=== PATIENT | male | born 1985 | race Caucasian/White ===

== ENCOUNTER 2022-10-31 14:22 | Inpatient (IN) ==
[2022-10-31] MEDS ORDERED: Lactulose 30 ml UDC PO PRN (14:30)
[2022-10-31] MEDS ORDERED: Ondansetron ODT 4 mg TAB 4 MG TAB PO PRN (14:30)
[2022-10-31] MEDS ORDERED: Magnesium Hydroxide LIQ 30 ML UDC PO PRN (14:30)
[2022-10-31] MEDS ORDERED: Ondansetron 4 mg VIAL 2 MG/ML 2 ml VIAL IV PRN (14:30)
[2022-10-31] MEDS ORDERED: Lactated Ringers 1000 ml BAG 1,000 ML IV SCH (15:00)
[2022-10-31] MEDS: Morphine 2 MG/ML SYRINGE IV PRN (15:19)
[2022-10-31 15:20] LABS: ABS Eosinophils 0.2 10^3/uL (0.0-0.5); ABS Lymphocytes 1.8 10^3/uL (1.0-4.8); ABS Monocytes 0.9 10^3/uL (0.0-1.1); ABS Neutrophils 7.9 10^3/uL (1.5-7.6); Eosinophil % 1.4 %; Hematocrit 39.1 % (38-53); Hemoglobin 13.2 g/dL (13.2-16.3); Lymphocyte % 16.8 %; Mean Corpuscular Hemoglobin 28.5 pg (27-33); Mean Corpuscular Hgb Conc 33.9 g/dL (31-36); Mean Corpuscular Volume 84.2 fL (80-97); Platelet Count 279 10^3/uL (150-450); Red Blood Count 4.64 10^6/uL (4.06-5.63); Red Cell Distribution Width 14.5 % (12-17); White Blood Count 10.9 10^3/uL (3.6-10.2)
[2022-10-31 15:25] LABS: INR 1.16 (0.83-1.13)
[2022-10-31 15:37] LABS: C Reactive Protein 104.4 mg/L (<8.01); Calcium 9.3 mg/dL (8.6-10.3); Creatinine, Serum 1.1 mg/dL (0.67-1.17); Potassium 3.8 mmol/L (3.5-5.0); eGFR CKD-EPI 89.2 (>60)
[2022-10-31] MEDS ORDERED: Vancomycin per Pharmacy 1 EA NOTE FOLLOW UP SCH (16:00)
[2022-10-31 16:11] LABS: Body Fluid Appearance Cloudy; Body Fluid Color Yellow; Body Fluid Source Synovial Fluid
[2022-10-31 16:36] LABS: Erythrocyte Sed Rate 10 mm/Hr (0-14)
[2022-10-31] MEDS: Cefepime 2 GM in Dextrose 2 GM/50 ML BAG IV SCH (17:09)
[2022-10-31] MEDS: Vancomycin 1,750 MG in NS 0.9% 500 ml BAG 500 ML IVPB SCH (17:59)
[2022-10-31 18:20] LABS: Body Fluid Total Cells Counted 43
[2022-10-31 18:21] LABS: Body Fluid WBC 232 /mcL
[2022-10-31] MEDS: Magnesium Hydroxide LIQ 30 ML UDC PO SCH (20:18)
[2022-11-01] MEDS: Cefepime 2 GM in Dextrose 2 GM/50 ML BAG IV SCH (04:04)
[2022-11-01] MEDS: Morphine 2 MG/ML SYRINGE IV PRN (05:37)
[2022-11-01] MEDS: Vancomycin 1,750 MG in NS 0.9% 500 ml BAG 500 ML IVPB SCH ×2 (06:01→18:14)
[2022-11-01] MEDS: Magnesium Hydroxide LIQ 30 ML UDC PO SCH ×2 (08:38→20:39)
[2022-11-01] MEDS: Vitamin THERAPEUTIC TAB PO SCH (08:44)
[2022-11-01] MEDS: cefTRIAXone 1 gm/50 mL D5W 1 GM/50 ML BAG IV SCH (17:21)
[2022-11-02] MEDS: Morphine 2 MG/ML SYRINGE IV PRN ×3 (00:17→09:33)
[2022-11-02] MEDS ORDERED: Vancomycin Trough Check NOTE FOLLOW UP ONE (05:30)
[2022-11-02 05:32] LABS: ABS Basophils 0.1 10^3/uL (0.0-0.1); ABS Eosinophils 0.2 10^3/uL (0.0-0.5); ABS Lymphocytes 1.6 10^3/uL (1.0-4.8); ABS Monocytes 0.8 10^3/uL (0.0-1.1); ABS Neutrophils 5.6 10^3/uL (1.5-7.6); ABS Nucleated RBC 0.01 10^3/ul; Eosinophil % 2.5 %; Hematocrit 36.6 % (38-53); Hemoglobin 12.7 g/dL (13.2-16.3); Lymphocyte % 19.3 %; Mean Corpuscular Hemoglobin 28.9 pg (27-33); Mean Corpuscular Hgb Conc 34.6 g/dL (31-36); Mean Corpuscular Volume 83.5 fL (80-97); Mean Platelet Volume 7.1 fL (7.5-11.2); Nucleated Red Blood Cells % 0.1 /100 WBC (0.0-0.4); Platelet Count 282 10^3/uL (150-450); Red Blood Count 4.39 10^6/uL (4.06-5.63); Red Cell Distribution Width 14.7 % (12-17); White Blood Count 8.3 10^3/uL (3.6-10.2)
[2022-11-02 05:48] LABS: C Reactive Protein 101.57 mg/L (<8.01)
[2022-11-02 05:54] LABS: Vancomycin Trough 9.5 mcg/mL
[2022-11-02] MEDS: Vancomycin 1,750 MG in NS 0.9% 500 ml BAG 500 ML IVPB SCH (06:31)
[2022-11-02] MEDS: Vitamin THERAPEUTIC TAB PO SCH (11:14)
[2022-11-02] MEDS: Magnesium Hydroxide LIQ 30 ML UDC PO SCH ×2 (11:15→21:13)
[2022-11-02] MEDS: Vancomycin 1,250 MG in NS 0.9% 250 ml 250 ML IVPB SCH ×2 (15:30→23:39)
[2022-11-02] MEDS: cefTRIAXone 1 gm/50 mL D5W 1 GM/50 ML BAG IV SCH (17:36)
[2022-11-03] MEDS: Vitamin THERAPEUTIC TAB PO SCH (08:27)
[2022-11-03 08:58] LABS: ABS Eosinophils 0.2 10^3/uL (0.0-0.5); ABS Lymphocytes 1.7 10^3/uL (1.0-4.8); ABS Monocytes 0.7 10^3/uL (0.0-1.1); ABS Neutrophils 5.7 10^3/uL (1.5-7.6); ABS Nucleated RBC 0.01 10^3/ul; Eosinophil % 2.9 %; Hematocrit 38.4 % (38-53); Hemoglobin 13.1 g/dL (13.2-16.3); Lymphocyte % 20.3 %; Mean Corpuscular Hemoglobin 28.4 pg (27-33); Mean Corpuscular Volume 83.6 fL (80-97); Mean Platelet Volume 6.8 fL (7.5-11.2); Nucleated Red Blood Cells % 0.1 /100 WBC (0.0-0.4); Platelet Count 342 10^3/uL (150-450); Red Cell Distribution Width 14.5 % (12-17); White Blood Count 8.4 10^3/uL (3.6-10.2)
[2022-11-03 10:34] VITALS: BP 116/70
[2022-11-03] MEDS: Vancomycin 1,250 MG in NS 0.9% 250 ml 250 ML IVPB SCH (11:00)
[2022-11-03] MEDS: Magnesium Hydroxide LIQ 30 ML UDC PO SCH (11:01)
[2022-11-03 17:51] LABS: B. burgdorferi PCR Negative (Negative); B. garinii/B. afzellii PCR Negative (Negative); Lyme Disease Source SYNOVIAL FLUID
[2022-11-04] MEDS ORDERED: Vancomycin Trough Check NOTE FOLLOW UP ONE ×2 (07:30)
== END 2022-11-03 15:25 | disposition home or self-care (01) | DRG 383 ==
LOC: MEDTELE
PROVIDERS: ADMIT Orthopaedic Surgery; ATTEND Orthopaedic Surgery